=== PATIENT | female | born 1985 | race Caucasian/White ===

== ENCOUNTER 2017-03-28 11:53 | Emergency (ER) | payer SELFPAY ==
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
--- NOTE | 2017-03-28 13:47 | DIAGNOSTIC IMAGING REPORT ---
PROCEDURE: CT HEAD WITHOUT CONTRAST INDICATION: HEADACHE TECHNIQUE: Noncontrast axial images with sagittal and coronal reformations. COMPARISON: None. FINDINGS: Brain and ventricles are normal. No evidence of an acute process or hemorrhage. Sinuses and mastoids are normal. IMPRESSION: 1. Negative head CT. 2. Findings discussed with ALIREZA Machado at [address] scans at this facility use dose modulation, iterative reconstruction, and/or weight-based dosing when appropriate to reduce radiation dose to as low as reasonably achievable.
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
--- NOTE | 2017-03-28 14:40 | ED ORDER SUMMARY ---
..... Patient: ANUPAM NEVES OrderSheet [facility] VisitID: [id number] [place] [address] 31y, F Registration Date/Time: 03/28/2017 ORDER SHEET Weight: 58.9 kg (stated) Allergies: No Known Drug Allergy GENERAL ORDERS: CT Head wo Cont Urgent (12:29 03/28/2017 EKoroleva P.A.-C) (Ack 12:30 LNations ER Tech1) (18:07 HKone R.N.) CT Cervical Spine wo Cont Urgent (12:30 03/28/2017 EKoroleva P.A.-C) (Ack 12:30 LNations ER Tech1) (18:07 HKone R.N.) MEDICATION ORDERS: Zofran ODT PO 4 mg (NOW) (12:30 03/28/2017 EKoroleva P.A.-C) (Ack 12:51 HKone R.N.) (12:57 HKone R.N.) Percocet PO 5/325 mg (HIGH ALERT MEDICATION, NOW) (12:30 03/28/2017 EKoroleva P.A.-C) (Ack 12:51 HKone R.N.) (12:56 HKone R.N.) IV FLUIDS: ORDER SHEET NOTES: [Electronically signed by Neda TreviñoAKim-C (15:25 03/28/2017)] [Electronically signed by Martha Jeffrey R.N. (18:07 03/28/2017)] [Electronically locked/signed by Martha Jeffrey R.N. (18:07 03/28/2017)]
--- NOTE | 2017-03-28 14:40 | ED ORDER SUMMARY ---
..... Patient: ANUPAM NEVES OrderSheet [facility] VisitID: [id number] [place] [address] 31y, F Registration Date/Time: 03/28/2017 ORDER SHEET Weight: 58.9 kg (stated) Allergies: No Known Drug Allergy GENERAL ORDERS: CT Head wo Cont Urgent (12:29 03/28/2017 EKoroleva P.A.-C) (Ack 12:30 LNations ER Tech1) (18:07 HKone R.N.) CT Cervical Spine wo Cont Urgent (12:30 03/28/2017 EKoroleva P.A.-C) (Ack 12:30 LNations ER Tech1) (18:07 HKone R.N.) MEDICATION ORDERS: Zofran ODT PO 4 mg (NOW) (12:30 03/28/2017 EKoroleva P.A.-C) (Ack 12:51 HKone R.N.) (12:57 HKone R.N.) Percocet PO 5/325 mg (HIGH ALERT MEDICATION, NOW) (12:30 03/28/2017 EKoroleva P.A.-C) (Ack 12:51 HKone R.N.) (12:56 HKone R.N.) IV FLUIDS: ORDER SHEET NOTES: [Electronically signed by Neda TreviñoAKim-C (15:25 03/28/2017)] [Electronically signed by Martha Jeffrey R.N. (18:07 03/28/2017)] [Electronically locked/signed by Martha Jeffrey R.N. (18:07 03/28/2017)]
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
--- NOTE | 2017-03-28 18:08 | ED MED RECONCILIATION SUMMARY ---
Patient: ANUPAM NEVES Medication Reconciliation Report [facility] VisitID: [id number] [place] [address] 31y, F Registration Date/Time: 03/28/2017 Weight: 58.9 kg Height/Length: 64 in. BMI: 22.3 ALLERGIES: No Known Drug Allergy The patient's Home Medications are listed below: THE FOLLOWING MEDICATIONS NEED TO BE RECONCILED: Advil Oral BusPIRone HCl Oral [place] Oral Pantoprazole Sodium Oral Simethicone Oral The source(s) of the original Home Medication information: patient The following Medications were given to the patient in the Emergency Department: Percocet [PO] PO 1 tab, administered: 03/28/2017 12:56:00 PM Zofran ODT [PO] PO 4 mg, administered: 03/28/2017 12:57:00 PM The following Medications were prescribed to the patient: Zofran (orally disintegrating tablets) 4 mg: take 1 orally every 6 hours for 3 days as needed for nausea and vomiting. Dispense fifteen (15). No refill. Substitution is permissible. -- Neda Treviño, P.A.-C Percocet 5 mg/325 mg: take 1 tablet orally every 6 hours as needed for pain. Dispense twelve (12). No refill. Substitution is permissible. -- Neda Treviño, P.A.-C
--- NOTE | 2017-03-28 18:08 | ED MED RECONCILIATION SUMMARY ---
Patient: ANUPAM NEVES Medication Reconciliation Report [facility] VisitID: [id number] [place] [address] 31y, F Registration Date/Time: 03/28/2017 Weight: 58.9 kg Height/Length: 64 in. BMI: 22.3 ALLERGIES: No Known Drug Allergy The patient's Home Medications are listed below: THE FOLLOWING MEDICATIONS NEED TO BE RECONCILED: Advil Oral BusPIRone HCl Oral [place] Oral Pantoprazole Sodium Oral Simethicone Oral The source(s) of the original Home Medication information: patient The following Medications were given to the patient in the Emergency Department: Percocet [PO] PO 1 tab, administered: 03/28/2017 12:56:00 PM Zofran ODT [PO] PO 4 mg, administered: 03/28/2017 12:57:00 PM The following Medications were prescribed to the patient: Zofran (orally disintegrating tablets) 4 mg: take 1 orally every 6 hours for 3 days as needed for nausea and vomiting. Dispense fifteen (15). No refill. Substitution is permissible. -- Neda Treviño, P.A.-C Percocet 5 mg/325 mg: take 1 tablet orally every 6 hours as needed for pain. Dispense twelve (12). No refill. Substitution is permissible. -- Neda Treviño, P.A.-C
--- NOTE | 2017-03-28 18:08 | ED MAR SUMMARY ---
..... Medication Administration Record [facility] [address] [address] Patient: ANUPAM NEVES Visit ID: [id number] 31y, F Weight: 58.9 kg Height/Length: 64 in BMI: 22.3 ALLERGIES: No Known Drug Allergy Given 12:56 03/28/2017 Martha Jeffrey, RKimN. Medication Administered: PERCOCET [PO] (OXYCODONE-ACETAMINOPHEN), Dose: 1 tab 5/325 mg Tablets PO. Medication Ordered: Percocet PO 5/325 mg (HIGH ALERT MEDICATION, NOW). Given 12:57 03/28/2017 Martha Jeffrey, R.N. Medication Administered: ZOFRAN ODT [PO] (ONDANSETRON), Dose: 4 mg PO. Medication Ordered: Zofran ODT PO 4 mg (NOW).
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
--- NOTE | 2017-03-28 18:08 | ED MAR SUMMARY ---
..... Medication Administration Record [facility] [address] [place] [address] Patient: ANUPAM NEVES Visit ID: [id number] 31y, F Weight: 58.9 kg Height/Length: 64 in BMI: 22.3 ALLERGIES: No Known Drug Allergy Given 12:56 03/28/2017 Martha Jeffrey, RKimN. Medication Administered: PERCOCET [PO] (OXYCODONE-ACETAMINOPHEN), Dose: 1 tab 5/325 mg Tablets PO. Medication Ordered: Percocet PO 5/325 mg (HIGH ALERT MEDICATION, NOW). Given 12:57 03/28/2017 Martha Jeffrey, R.N. Medication Administered: ZOFRAN ODT [PO] (ONDANSETRON), Dose: 4 mg PO. Medication Ordered: Zofran ODT PO 4 mg (NOW).
== END 2017-03-28 15:27 | disposition home or self-care (01) ==
LOC: ED SRH 11:53
DX: S06.9X9A Unspecified intracranial injury with loss of consciousness of unspecified duration, initial encounter (principal); S16.1XXA Strain of muscle, fascia and tendon at neck level, initial encounter; S42.022A Displaced fracture of shaft of left clavicle, initial encounter for closed fracture; S80.02XA Contusion of left knee, initial encounter; S80.01XA Contusion of right knee, initial encounter; S80.12XA Contusion of left lower leg, initial encounter; V28.5XXA Motorcycle passenger injured in noncollision transport accident in traffic accident, initial encounter; Y93.9 Activity, unspecified; Y99.9 Unspecified external cause status; Y92.9 Unspecified place or not applicable